=== PATIENT | male | born 1985 | race Caucasian/White ===

== ENCOUNTER 2020-12-02 13:51 | Inpatient (IN) | payer MEDICARE, MEDICAID ==
[2020-12-02 14:20] LABS: #Basophils 0.1 10x3/uL (0.0-0.2); #Eosinphils 0.1 10x3/uL (0.0-0.5); #Monocytes 1.4 10x3/uL (0.0-1.1); #Neutrophils 16.5 10x3/uL (1.5-8.4); %Basophils 0.7 % (0.0-2.0); %Eosinophils 0.4 % (0.0-6.0); %Lymphocytes 11.9 % (18.0-47.0); %Monocytes 6.8 % (0.0-10.0); %Neutrophils 78.9 % (40.0-75.0); Mean Corpuscular HGB CONC 34.3 g/dL (32.0-36.0); Mean Corpuscular Hemoglobin 30.4 pg (27.0-33.0); Mean Corpuscular Volume 88.8 fl (81.2-95.1); Mean Platelet Volume 11.3 fl (7.4-10.4); Platelet Count 325 10x3/uL (150-450); RBC Distribution Width 17.3 % (11.5-14.5); Red Blood Cell (RBC) Count 4.27 10x6/uL (4.32-5.72)
[2020-12-02 14:38] LABS: ALT (SGPT) 43 U/L (8-55); AST (SGOT) 26 U/L (5-34); Alkaline Phosphatase 163 U/L (40-110); Anion Gap 25 mmol/L (10-20); BUN (Urea Nitrogen) 44 mg/dL (8.9-20.6); Bilirubin, Total 0.9 mg/dL (0.2-1.2); Calc. Creatinine Clearance 0 mL/min (70-130); Calcium 10.6 mg/dL (7.8-10.44); Carbon Dioxide 23 mmol/L (22-29); Chloride 90 mmol/L (98-107); Globulin 3.2 g/dL (2.4-3.5); Glucose 151 mg/dL (70-105); Protein, Total 8.2 g/dL (6.0-8.3); Sodium 135 mmol/L (136-145)
[2020-12-02] MEDS ORDERED: Enoxaparin Sodium 60 MG/0.6 ML SYRINGE ONE (14:57)
[2020-12-02] MEDS ORDERED: Aspirin Chewable 81 MG TAB ONE (14:57)
[2020-12-02 15:08] LABS: CKMB 7.2 ng/mL (0-6.6)
[2020-12-02] MEDS ORDERED: Cefepime 2 GM VIAL ONE (15:20)
[2020-12-02 15:23] LABS: SARS-CoV-2 NAA Rapid Test Not Detected (NotDetected)
[2020-12-02] MEDS ORDERED: Acetaminophen 325 MG TAB PO PRN (16:13)
[2020-12-02] MEDS ORDERED: Guaifenesin DM 100-10/5 ML UDCUP PO PRN (16:13)
[2020-12-02] MEDS ORDERED: Senokot S 8.6-50 MG TAB PO PRN (16:13)
[2020-12-02] MEDS ORDERED: Heparin 25,000 units/D5W 500 ML IVPB SCH (16:30)
[2020-12-02] MEDS ORDERED: Heparin 10,000 UNITS/ 10 ML VIAL SLOW IVP SCH (16:30)
[2020-12-02 16:34] LABS: BF Color Colorless; BF RBC Count - Manual 0 /cu.mm; BF WBC/Nonhematics Ct.-Manual 0 /cu.mm; Body Fluid Source Peritoneal Fluid; Clarity Clear (Clear); Tube # 1
[2020-12-02 17:11] LABS: Troponin I 0.278 ng/mL (< 0.028)
[2020-12-02 17:15] LABS: Platelet Count 256 10x3/uL (150-450)
[2020-12-02 17:17] LABS: Lactic Acid 1.3 mmol/L (0.5-2.2)
[2020-12-02 17:20] LABS: Hemoglobin 9.6 g/dL (13.5-17.5)
[2020-12-02 19:47] LABS: #Basophils 0.1 10x3/uL (0.0-0.2); #Eosinphils 0.1 10x3/uL (0.0-0.5); #Monocytes 1.6 10x3/uL (0.0-1.1); #Neutrophils 11.8 10x3/uL (1.5-8.4); %Basophils 0.8 % (0.0-2.0); %Eosinophils 0.7 % (0.0-6.0); %Lymphocytes 14.5 % (18.0-47.0); %Monocytes 9.6 % (0.0-10.0); %Neutrophils 72.5 % (40.0-75.0); Hemoglobin 10.4 g/dL (13.5-17.5); Mean Corpuscular HGB CONC 33.5 g/dL (32.0-36.0); Mean Corpuscular Hemoglobin 30.4 pg (27.0-33.0); Mean Corpuscular Volume 90.6 fl (81.2-95.1); Mean Platelet Volume 11.2 fl (7.4-10.4); Platelet Count 224 10x3/uL (150-450); RBC Distribution Width 17.8 % (11.5-14.5); Red Blood Cell (RBC) Count 3.42 10x6/uL (4.32-5.72); White Blood Cell (WBC) Count 16.2 10x3/uL (3.5-10.5)
[2020-12-02 20:09] LABS: Troponin I 0.313 ng/mL (< 0.028)
[2020-12-02] MEDS ORDERED: Sodium Chloride 0.9% 1,000 ML IV SCH ×2 (20:30→23:00)
[2020-12-02] MEDS ORDERED: Potassium Chloride 20 MEQ TAB PO SCH (21:15)
[2020-12-02] MEDS: Atorvastatin Calcium 40 MG TAB PO SCH (22:21)
[2020-12-02] MEDS: Sevelamer Carbonate 800 MG TAB PO SCH (22:22)
[2020-12-02] MEDS: Metoprolol Tartrate 25 MG TAB PO SCH (22:25)
[2020-12-03 06:26] LABS: #Basophils 0.1 10x3/uL (0.0-0.2); #Eosinphils 0.3 10x3/uL (0.0-0.5); #Monocytes 1.7 10x3/uL (0.0-1.1); #Neutrophils 11.4 10x3/uL (1.5-8.4); %Basophils 0.8 % (0.0-2.0); %Eosinophils 1.8 % (0.0-6.0); %Lymphocytes 14.4 % (18.0-47.0); %Monocytes 10.6 % (0.0-10.0); %Neutrophils 70.4 % (40.0-75.0); Hemoglobin 8.8 g/dL (13.5-17.5); Mean Corpuscular HGB CONC 33.3 g/dL (32.0-36.0); Mean Corpuscular Hemoglobin 30.2 pg (27.0-33.0); Mean Corpuscular Volume 90.7 fl (81.2-95.1); Platelet Count 249 10x3/uL (150-450); RBC Distribution Width 17.2 % (11.5-14.5); Red Blood Cell (RBC) Count 2.91 10x6/uL (4.32-5.72); White Blood Cell (WBC) Count 16.2 10x3/uL (3.5-10.5)
[2020-12-03 06:30] LABS: Anion Gap 19 mmol/L (10-20); Cardiac Risk 5.5 (Less than 4.5); Globulin 2.6 g/dL (2.4-3.5); LDL Cholesterol, Calculated 62 mg/dL
[2020-12-03 06:47] LABS: ALT (SGPT) 30 U/L (8-55); AST (SGOT) 21 U/L (5-34); Albumin 3.5 g/dL (3.5-5.0); Alkaline Phosphatase 113 U/L (40-110); BUN (Urea Nitrogen) 48 mg/dL (8.9-20.6); Bilirubin, Total 0.5 mg/dL (0.2-1.2); Calc. Creatinine Clearance 8 mL/min (70-130); Calcium 9.2 mg/dL (7.8-10.44); Carbon Dioxide 23 mmol/L (22-29); Chloride 98 mmol/L (98-107); Cholesterol 138 mg/dl (< 200 Desired); Glucose 106 mg/dL (70-105); HDL Cholesterol 25 mg/dL (>60 Neg Risk); Potassium 3.4 mmol/L (3.5-5.1); Protein, Total 6.1 g/dL (6.0-8.3); Sodium 137 mmol/L (136-145); Triglycerides 257 mg/dL (Less than 150)
[2020-12-03] MEDS: Nicotine 14 MG PATCH TD SCH ×2 (06:56→21:05)
[2020-12-03] MEDS ORDERED: Potassium Chloride 20 MEQ TAB PO SCH (08:00)
[2020-12-03 08:46] LABS: Anion Gap 19 mmol/L (10-20); BUN (Urea Nitrogen) 47 mg/dL (8.9-20.6); Calc. Creatinine Clearance 8 mL/min (70-130); Carbon Dioxide 20 mmol/L (22-29); Chloride 99 mmol/L (98-107); Glucose 94 mg/dL (70-105); Potassium 3.4 mmol/L (3.5-5.1); Sodium 135 mmol/L (136-145)
[2020-12-03] MEDS ORDERED: Nitroglycerin 50 MG/250 ML BOT 250 ML ONE (08:49)
[2020-12-03] MEDS ORDERED: Heparin 10,000 UNITS/ 10 ML VIAL ONE (08:49)
[2020-12-03] MEDS ORDERED: Adenosine 6 MG/2 ML VIAL ONE (08:49)
[2020-12-03] MEDS ORDERED: Lidocaine 1% (PF) 30 ML VIAL ONE (08:49)
[2020-12-03 08:50] LABS: Troponin I 0.264 ng/mL (< 0.028)
[2020-12-03] MEDS ORDERED: Bivalirudin 250 MG VIAL ONE (08:50)
[2020-12-03] MEDS ORDERED: Verapamil 5 MG/2 ML VIAL ONE (08:51)
[2020-12-03] MEDS ORDERED: Midazolam HCl 2 mg/2 ml Vial ONE (08:51)
[2020-12-03] MEDS ORDERED: Fentanyl 100 MCG/2 ML VIAL ONE (08:57)
[2020-12-03] MEDS ORDERED: Vancomycin HCl 1 GM in Sodium Chloride 0.9% 250 ML 250 ML IVPB SCH ×2 (09:00→13:00)
[2020-12-03] MEDS ORDERED: Communication Order-Pharmacy FS SCH (09:00)
[2020-12-03] MEDS: Folic Acid/Vit B Comp W-C PO SCH (09:04)
[2020-12-03] MEDS: Ferrous Sulfate 325 MG TAB PO SCH (09:04)
[2020-12-03] MEDS: Metoprolol Tartrate 25 MG TAB PO SCH ×2 (09:04→20:25)
[2020-12-03] MEDS: Sevelamer Carbonate 800 MG TAB PO SCH ×3 (09:05→20:25)
[2020-12-03] MEDS: Aspirin Chewable 81 MG TAB PO SCH (09:05)
[2020-12-03 09:41] LABS: PTT 27.1 sec (22.0-33.0); Prothrombin Time 11.1 sec (9.5-12.1)
[2020-12-03 11:20] LABS: Hemoglobin A1c 5.5 % (4.0-6.0)
[2020-12-03] MEDS ORDERED: Vancomycin HCl 500 MG in Sodium Chloride 0.9% 100 ML IVPB SCH ×2 (11:45)
[2020-12-03] MEDS ORDERED: Vancomycin 1 GM in Premix Bag 1 BAG IVPB SCH (11:45)
[2020-12-03] MEDS ORDERED: HOLD VANCOMYCIN FOR LEVEL >20 FS SCH (11:45)
[2020-12-03] MEDS ORDERED: Vancomycin HCl 750 MG in Sodium Chloride 0.9% 250 ML 250 ML IVPB SCH (11:45)
[2020-12-03] MEDS ORDERED: Vancomycin HCl 1.25 GM in Sodium Chloride 0.9% 250 ML 250 ML IVPB SCH (11:45)
[2020-12-03] MEDS ORDERED: Nitroglycerin 0.4 MG TAB (25 Tab Bottle) SL PRN (11:54)
[2020-12-03] MEDS ORDERED: Sodium Chloride 0.9% 200 ML IV PRN (11:54)
[2020-12-03] MEDS ORDERED: Acetaminophen/Codeine 30-300mg Tablet PO PRN ×2 (11:54)
[2020-12-03] MEDS ORDERED: EPOETIN ALFA-EPBX (ESRD) 10,000 UNIT/ML VIAL SC SCH (12:00)
[2020-12-03] MEDS ORDERED: Cefepime 2 GM in Sodium Chloride 0.9% 100 ML IVPB SCH (15:30)
[2020-12-03] MEDS: Atorvastatin Calcium 40 MG TAB PO SCH (20:25)
[2020-12-04] MEDS: Ondansetron PF 4 MG/2 ML Vial IVP PRN (03:25)
[2020-12-04 05:45] LABS: #Basophils 0.1 10x3/uL (0.0-0.2); #Eosinphils 0.5 10x3/uL (0.0-0.5); #Monocytes 1.6 10x3/uL (0.0-1.1); #Neutrophils 9.8 10x3/uL (1.5-8.4); %Basophils 0.8 % (0.0-2.0); %Eosinophils 3.3 % (0.0-6.0); %Lymphocytes 11.9 % (18.0-47.0); %Monocytes 10.8 % (0.0-10.0); %Neutrophils 68.6 % (40.0-75.0); Hemoglobin 8.1 g/dL (13.5-17.5); Mean Corpuscular HGB CONC 33.8 g/dL (32.0-36.0); Mean Corpuscular Hemoglobin 30.2 pg (27.0-33.0); Mean Corpuscular Volume 89.6 fl (81.2-95.1); Platelet Count 240 10x3/uL (150-450); RBC Distribution Width 17.3 % (11.5-14.5); Red Blood Cell (RBC) Count 2.68 10x6/uL (4.32-5.72); White Blood Cell (WBC) Count 14.3 10x3/uL (3.5-10.5)
[2020-12-04 06:04] LABS: ALT (SGPT) 28 U/L (8-55); AST (SGOT) 19 U/L (5-34); Albumin 3.2 g/dL (3.5-5.0); Alkaline Phosphatase 99 U/L (40-110); Anion Gap 16 mmol/L (10-20); BUN (Urea Nitrogen) 49 mg/dL (8.9-20.6); Bilirubin, Total 0.4 mg/dL (0.2-1.2); Calc. Creatinine Clearance 8 mL/min (70-130); Calcium 8.6 mg/dL (7.8-10.44); Carbon Dioxide 23 mmol/L (22-29); Chloride 97 mmol/L (98-107); Globulin 2.2 g/dL (2.4-3.5); Glucose 101 mg/dL (70-105); Magnesium 1.8 mg/dL (1.6-2.6); Potassium 3.1 mmol/L (3.5-5.1); Protein, Total 5.4 g/dL (6.0-8.3); Sodium 133 mmol/L (136-145)
[2020-12-04] MEDS: Metoprolol Tartrate 25 MG TAB PO SCH (07:51)
[2020-12-04] MEDS: Aspirin Chewable 81 MG TAB PO SCH (07:52)
[2020-12-04] MEDS: Folic Acid/Vit B Comp W-C PO SCH (07:52)
[2020-12-04] MEDS: Sevelamer Carbonate 800 MG TAB PO SCH ×3 (07:52→20:20)
[2020-12-04] MEDS: Clopidogrel Bisulfate 75 MG TAB PO SCH (07:52)
[2020-12-04] MEDS: Ferrous Sulfate 325 MG TAB PO SCH (07:52)
[2020-12-04] MEDS ORDERED: Potassium Chloride 20 MEQ TAB PO SCH (09:15)
[2020-12-04] MEDS ORDERED: Cefepime 2 GM in Sodium Chloride 0.9% 100 ML IVPB SCH (15:30)
[2020-12-04 16:59] LABS: Hemoglobin 8.6 g/dL (13.5-17.5); Platelet Count 245 10x3/uL (150-450)
[2020-12-04] MEDS: Nicotine 14 MG PATCH TD SCH (20:19)
[2020-12-04] MEDS: Atorvastatin Calcium 40 MG TAB PO SCH (20:20)
[2020-12-05] MEDS: Ondansetron PF 4 MG/2 ML Vial IVP PRN (02:43)
[2020-12-05 05:05] VITALS: BP 123/76; TEMP 98
[2020-12-05 05:14] LABS: Hemoglobin 8.6 g/dL (13.5-17.5); Mean Corpuscular HGB CONC 33.7 g/dL (32.0-36.0); Mean Corpuscular Hemoglobin 30.3 pg (27.0-33.0); Mean Corpuscular Volume 89.8 fl (81.2-95.1); Mean Platelet Volume 11.8 fl (7.4-10.4); Platelet Count 247 10x3/uL (150-450); RBC Distribution Width 17.4 % (11.5-14.5); Red Blood Cell (RBC) Count 2.84 10x6/uL (4.32-5.72); White Blood Cell (WBC) Count 14.9 10x3/uL (3.5-10.5)
[2020-12-05 05:37] LABS: Anion Gap 17 mmol/L (10-20); BUN (Urea Nitrogen) 50 mg/dL (8.9-20.6); Calc. Creatinine Clearance 8 mL/min (70-130); Calcium 8.9 mg/dL (7.8-10.44); Carbon Dioxide 24 mmol/L (22-29); Chloride 97 mmol/L (98-107); Glucose 85 mg/dL (70-105); Potassium 3.3 mmol/L (3.5-5.1); Sodium 135 mmol/L (136-145)
[2020-12-05 06:02] VITALS: BMI 26.4
[2020-12-05 07:10] LABS: MDiff Complete? YES
[2020-12-05 07:12] LABS: Eosinophils 6 % (0-10); Lymphocytes 11 % (21-51); Monocytes 10 % (0-10); Neutrophil 73 % (42-75)
[2020-12-05 07:13] LABS: Platelet Morphology Comment Appears Adequate
[2020-12-05] MEDS: Ferrous Sulfate 325 MG TAB PO SCH (08:57)
[2020-12-05] MEDS: Aspirin Chewable 81 MG TAB PO SCH (08:57)
[2020-12-05] MEDS: Sevelamer Carbonate 800 MG TAB PO SCH (08:57)
[2020-12-05] MEDS: Clopidogrel Bisulfate 75 MG TAB PO SCH (08:57)
[2020-12-05] MEDS ORDERED: Potassium Chloride 20 MEQ TAB PO SCH (09:00)
[2020-12-05 09:32] LABS: Vancomycin, Random 15.2 ug/mL (See Comment)
[2020-12-05] MEDS ORDERED: Vancomycin HCl 500 MG in Sodium Chloride 0.9% 100 ML IVPB SCH ×2 (12:00→13:00)
== END 2020-12-05 13:26 | disposition home or self-care (01) | DRG 280 ==
LOC: CSHERS 13:51 → CSHTELE 20:02
PROVIDERS: ADMIT Internal Medicine; ATTEND Family Medicine
PROC: 3E1M39Z Irrigation of Peritoneal Cavity using Dialysate, Percutaneous Approach (ICD-10-PCS; principal; 2020-12-03)
PROC: 4A023N7 Measurement of Cardiac Sampling and Pressure, Left Heart, Percutaneous Approach (ICD-10-PCS; 2020-12-03)
PROC: B2111ZZ Fluoroscopy of Multiple Coronary Arteries using Low Osmolar Contrast (ICD-10-PCS; 2020-12-03)
PROC: B2161ZZ Fluoroscopy of Right and Left Heart using Low Osmolar Contrast (ICD-10-PCS; 2020-12-03)
DX: I21.4 Non-ST elevation (NSTEMI) myocardial infarction (principal); N18.6 End stage renal disease; I12.0 Hypertensive chronic kidney disease with stage 5 chronic kidney disease or end stage renal disease; E87.2 Acidosis; E87.1 Hypo-osmolality and hyponatremia; R65.10 Systemic inflammatory response syndrome (SIRS) of non-infectious origin without acute organ dysfunction; Z20.822 Contact with and (suspected) exposure to COVID-19; E78.5 Hyperlipidemia, unspecified; E87.6 Hypokalemia; R77.8 Other specified abnormalities of plasma proteins; F17.210 Nicotine dependence, cigarettes, uncomplicated; I95.9 Hypotension, unspecified; D63.1 Anemia in chronic kidney disease; Z91.018 Allergy to other foods; Z71.6 Tobacco abuse counseling; Z91.14 Patient's other noncompliance with medication regimen; Z79.899 Other long term (current) drug therapy; Z99.2 Dependence on renal dialysis; I25.110 Atherosclerotic heart disease of native coronary artery with unstable angina pectoris; R00.0 Tachycardia, unspecified
CPT/HCPCS: 0240U; 36415; 71045; 80048; 80053; 80061; 80202; 82553; 83036; 83605; 83735; 84145; 84484; 85014; 85018; 85025; 85049; 85379; 85610; 85730; 86140; 87040; 87070; 89051; 90945; 93005; 93010; 93306; 93458; 96365; 96366; 96367; 96372; 99152; G0257; J0153; J0583; J0692; J1644; J1650; J1956; J2001; J2250; J2405; J3010; J3370; J3490; Q5105

== ENCOUNTER 2021-01-20 11:26 | Inpatient (IN) | payer MEDICARE, MEDICAID ==
[2021-01-20] MEDS ORDERED: Cefepime 2 GM VIAL ONE (12:19)
[2021-01-20 12:44] LABS: #Basophils 0.1 10x3/uL (0.0-0.2); #Eosinphils 0.2 10x3/uL (0.0-0.5); #Neutrophils 16.1 10x3/uL (1.5-8.4); %Basophils 0.5 % (0.0-2.0); %Eosinophils 0.8 % (0.0-6.0); %Lymphocytes 9.2 % (18.0-47.0); %Monocytes 4.9 % (0.0-10.0); %Neutrophils 81.8 % (40.0-75.0); Hemoglobin 12.8 g/dL (13.5-17.5); Mean Corpuscular HGB CONC 33.9 g/dL (32.0-36.0); Mean Corpuscular Hemoglobin 31.5 pg (27.0-33.0); Mean Corpuscular Volume 93.1 fl (81.2-95.1); Mean Platelet Volume 11.4 fl (7.4-10.4); Platelet Count 403 10x3/uL (150-450); RBC Distribution Width 17.9 % (11.5-14.5); Red Blood Cell (RBC) Count 4.06 10x6/uL (4.32-5.72); White Blood Cell (WBC) Count 19.7 10x3/uL (3.5-10.5)
[2021-01-20 13:05] LABS: ALT (SGPT) 148 U/L (8-55); AST (SGOT) 46 U/L (5-34); Albumin 4.2 g/dL (3.5-5.0); Alkaline Phosphatase 203 U/L (40-110); Anion Gap 23 mmol/L (10-20); BUN (Urea Nitrogen) 31 mg/dL (8.9-20.6); Bilirubin, Total 0.6 mg/dL (0.2-1.2); Calc. Creatinine Clearance 0 mL/min (70-130); Calcium 10.5 mg/dL (7.8-10.44); Carbon Dioxide 23 mmol/L (22-29); Chloride 83 mmol/L (98-107); Globulin 4.6 g/dL (2.4-3.5); Glucose 137 mg/dL (70-105); Potassium 3.3 mmol/L (3.5-5.1); Protein, Total 8.8 g/dL (6.0-8.3); Sodium 126 mmol/L (136-145)
[2021-01-20 13:48] LABS: Actual Bicarbonate (HCO3a) 23.6 mEq/L (22-28); CO2 Tension 34.6 mmHg (35.0-45.0); Calcium, Ionized (arterial) 1.06 mmol/L (1.12-1.30); Carboxyhemoglobin (COHb) 0.6 gm% (0.0-3.0); Hemoglobin (Hb) 10.8 g/dL (14.0-18.0); Notified Whom: ED physician; O2 Tension (PaO2), arterial 93.4 mmHg (80.0-100.0); Potassium - ABG Lab 3.4 mmol/L (3.70-5.30); Puncture Site LBA; pH, Arterial 7.45 (7.35-7.45)
[2021-01-20] MEDS ORDERED: Bisacodyl 5 MG TAB PO PRN (15:10)
[2021-01-20] MEDS ORDERED: Ondansetron PF 4 MG/2 ML Vial IVP PRN (15:10)
[2021-01-20] MEDS ORDERED: Vancomycin HCl 0.5 GM in Sodium Chloride 0.9% 250 ML 250 ML IVPB SCH (15:15)
[2021-01-20 15:28] LABS: Lactic Acid 1.9 mmol/L (0.5-2.2)
[2021-01-20] MEDS ORDERED: Vancomycin HCl 250 MG in Sodium Chloride 0.9% 100 ML IVPB SCH (17:00)
[2021-01-20] MEDS ORDERED: Vancomycin 1 GM in Premix Bag 1 BAG IVPB SCH (17:00)
[2021-01-20] MEDS ORDERED: Vancomycin HCl 500 MG in Sodium Chloride 0.9% 100 ML IVPB SCH (17:00)
[2021-01-20] MEDS ORDERED: Vancomycin HCl 750 MG in Sodium Chloride 0.9% 250 ML 250 ML IVPB SCH (17:00)
[2021-01-20] MEDS ORDERED: HOLD VANCOMYCIN FOR LEVEL >20 FS SCH (17:00)
[2021-01-20] MEDS ORDERED: Ondansetron PF 4 MG/2 ML Vial ONE (17:40)
[2021-01-20] MEDS ORDERED: HYDROcodone/Acetaminophen 5/325 mg Tablet ONE (18:10)
[2021-01-21 05:23] LABS: #Basophils 0.1 10x3/uL (0.0-0.2); #Eosinphils 0.3 10x3/uL (0.0-0.5); #Neutrophils 11.4 10x3/uL (1.5-8.4); %Basophils 0.4 % (0.0-2.0); %Eosinophils 1.9 % (0.0-6.0); %Monocytes 6.8 % (0.0-10.0); Hemoglobin 10.1 g/dL (13.5-17.5); Mean Corpuscular Hemoglobin 31.2 pg (27.0-33.0); Mean Corpuscular Volume 94.4 fl (81.2-95.1); Mean Platelet Volume 11.7 fl (7.4-10.4); Platelet Count 347 10x3/uL (150-450); RBC Distribution Width 17.6 % (11.5-14.5); Red Blood Cell (RBC) Count 3.24 10x6/uL (4.32-5.72); White Blood Cell (WBC) Count 14.9 10x3/uL (3.5-10.5)
[2021-01-21 05:26] LABS: Anion Gap 18 mmol/L (10-20)
[2021-01-21 05:33] LABS: BUN (Urea Nitrogen) 30 mg/dL (8.9-20.6); Calc. Creatinine Clearance 13 mL/min (70-130); Calcium 8.6 mg/dL (7.8-10.44); Carbon Dioxide 25 mmol/L (22-29); Chloride 87 mmol/L (98-107); Glucose 99 mg/dL (70-105); Sodium 127 mmol/L (136-145)
[2021-01-21] MEDS ORDERED: Potassium Chloride 20 MEQ TAB PO SCH (08:00)
[2021-01-21] MEDS: Aspirin Chewable 81 MG TAB PO SCH (08:39)
[2021-01-21] MEDS: Clopidogrel Bisulfate 75 MG TAB PO SCH (08:39)
[2021-01-21 08:58] LABS: Band 1 % (5-11); Hemoglobin 9.9 g/dL (13.5-17.5); Lymphocytes 10 % (21-51); MDiff Complete? YES; Mean Corpuscular HGB CONC 33.6 g/dL (32.0-36.0); Mean Corpuscular Volume 92.5 fl (81.2-95.1); Mean Platelet Volume 11.6 fl (7.4-10.4); Monocytes 8 % (0-10); Neutrophil 81 % (42-75); Platelet Count 345 10x3/uL (150-450); Platelet Morphology Comment Appears Adequate; RBC Distribution Width 17.2 % (11.5-14.5); RBC Morphology Normal; Red Blood Cell (RBC) Count 3.19 10x6/uL (4.32-5.72); White Blood Cell (WBC) Count 12.8 10x3/uL (3.5-10.5)
[2021-01-21] MEDS ORDERED: Enoxaparin Sodium 30 MG/0.3 ML SYRINGE SC SCH (09:00)
[2021-01-21] MEDS: HYDROcodone/Acetaminophen 5/325 mg Tablet PO PRN ×2 (11:31→16:06)
[2021-01-21 14:52] VITALS: BMI 22.8
[2021-01-21] MEDS: Atorvastatin Calcium 40 MG TAB PO SCH (21:49)
[2021-01-21] MEDS: traZODone HCl 50 MG TAB PO SCH (21:49)
[2021-01-22 07:15] LABS: Anion Gap 17 mmol/L (10-20); BUN (Urea Nitrogen) 33 mg/dL (8.9-20.6); Calc. Creatinine Clearance 13 mL/min (70-130); Carbon Dioxide 26 mmol/L (22-29); Chloride 89 mmol/L (98-107); Sodium 129 mmol/L (136-145)
[2021-01-22 07:16] LABS: Calcium 8.5 mg/dL (7.8-10.44); Glucose 123 mg/dL (70-105); Magnesium 1.6 mg/dL (1.6-2.6)
[2021-01-22 07:18] LABS: Potassium 2.8 mmol/L (3.5-5.1)
[2021-01-22] MEDS: Aspirin Chewable 81 MG TAB PO SCH (08:18)
[2021-01-22] MEDS: Cefepime 2 GM in Sodium Chloride 0.9% 100 ML IVPB SCH (08:19)
[2021-01-22] MEDS: Clopidogrel Bisulfate 75 MG TAB PO SCH (08:19)
[2021-01-22] MEDS: HYDROcodone/Acetaminophen 5/325 mg Tablet PO PRN ×3 (08:19→21:30)
[2021-01-22 09:07] LABS: Vancomycin, Random 33.3 ug/mL (See Comment)
[2021-01-22] MEDS: Potassium Chloride 20 MEQ TAB PO SCH ×4 (10:47→17:09)
[2021-01-22] MEDS: traZODone HCl 50 MG TAB PO SCH (20:33)
[2021-01-22] MEDS: Atorvastatin Calcium 40 MG TAB PO SCH (20:33)
[2021-01-23 05:32] LABS: Anion Gap 15 mmol/L (10-20); BUN (Urea Nitrogen) 34 mg/dL (8.9-20.6); Calc. Creatinine Clearance 12 mL/min (70-130); Calcium 8.5 mg/dL (7.8-10.44); Carbon Dioxide 23 mmol/L (22-29); Chloride 94 mmol/L (98-107); Glucose 125 mg/dL (70-105); Potassium 3.3 mmol/L (3.5-5.1); Sodium 129 mmol/L (136-145)
[2021-01-23 05:46] LABS: Hemoglobin 8.8 g/dL (13.5-17.5); Mean Corpuscular HGB CONC 33.6 g/dL (32.0-36.0); Mean Corpuscular Hemoglobin 31.5 pg (27.0-33.0); Mean Corpuscular Volume 93.9 fl (81.2-95.1); Mean Platelet Volume 11.2 fl (7.4-10.4); Platelet Count 354 10x3/uL (150-450); RBC Distribution Width 17.2 % (11.5-14.5); Red Blood Cell (RBC) Count 2.79 10x6/uL (4.32-5.72); White Blood Cell (WBC) Count 10.3 10x3/uL (3.5-10.5)
[2021-01-23 07:06] LABS: Band 2 % (5-11); Eosinophils 2 % (0-10); Lymphocytes 12 % (21-51); Monocytes 5 % (0-10); Reactive Lymphocytes 8 % (0-10)
[2021-01-23 07:07] LABS: Metamyelocyte 1 % (0-0); Myelocyte 3 % (0-0); Neutrophil 66 % (42-75)
[2021-01-23 07:09] LABS: Anisocytosis MODERATE=16-30 cells (100X) (0-5/hpf); Macrocytosis SLIGHT = 6-15 cells (100X) (0-5/hpf); Microcytosis SLIGHT = 6-15 cells (100X) (0-5/hpf); Ovalocytes SLIGHT = 2-5 cells (100X) (0-1/hpf)
[2021-01-23 07:10] LABS: Large Platelets SLIGHT; Manual Diff?? YES; Platelet Morphology Comment Appears Adequate
[2021-01-23 07:11] LABS: MDiff Complete? YES
[2021-01-23] MEDS: Aspirin Chewable 81 MG TAB PO SCH (08:30)
[2021-01-23] MEDS: Clopidogrel Bisulfate 75 MG TAB PO SCH (08:30)
[2021-01-23 09:33] LABS: Vancomycin, Random 27.7 ug/mL (See Comment)
[2021-01-23] MEDS: HYDROcodone/Acetaminophen 5/325 mg Tablet PO PRN (20:23)
[2021-01-23] MEDS: traZODone HCl 50 MG TAB PO SCH (20:24)
[2021-01-23] MEDS: Atorvastatin Calcium 40 MG TAB PO SCH (20:24)
[2021-01-24 05:40] LABS: Anion Gap 15 mmol/L (10-20); BUN (Urea Nitrogen) 36 mg/dL (8.9-20.6); Calc. Creatinine Clearance 12 mL/min (70-130); Calcium 8.9 mg/dL (7.8-10.44); Carbon Dioxide 24 mmol/L (22-29); Chloride 95 mmol/L (98-107); Glucose 105 mg/dL (70-105); Potassium 3.3 mmol/L (3.5-5.1); Sodium 131 mmol/L (136-145)
[2021-01-24 05:41] LABS: Hemoglobin 8.9 g/dL (13.5-17.5); Mean Corpuscular HGB CONC 33.8 g/dL (32.0-36.0); Mean Corpuscular Volume 94.6 fl (81.2-95.1); Mean Platelet Volume 10.9 fl (7.4-10.4); Platelet Count 378 10x3/uL (150-450); RBC Distribution Width 17.4 % (11.5-14.5); Red Blood Cell (RBC) Count 2.78 10x6/uL (4.32-5.72); White Blood Cell (WBC) Count 12.1 10x3/uL (3.5-10.5)
[2021-01-24 06:38] LABS: Eosinophils 1 % (0-10); Lymphocytes 6 % (21-51); Metamyelocyte 2 % (0-0); Monocytes 5 % (0-10); Myelocyte 4 % (0-0); Neutrophil 63 % (42-75); Nucleated RBC 1 % (0); Reactive Lymphocytes 12 % (0-10)
[2021-01-24 06:40] LABS: Anisocytosis SLIGHT = 6-15 cells (100X) (0-5/hpf); Band 6 % (5-11); Microcytosis SLIGHT = 6-15 cells (100X) (0-5/hpf); Ovalocytes SLIGHT = 2-5 cells (100X) (0-1/hpf)
[2021-01-24 06:41] LABS: Basophilic Stippling SLIGHT = 1-2 cells (100X) (None Seen); Platelet Morphology Comment Appears Adequate
[2021-01-24 06:43] LABS: MDiff Complete? YES; Manual Diff?? YES
[2021-01-24] MEDS: Cefepime 2 GM in Sodium Chloride 0.9% 100 ML IVPB SCH (08:37)
[2021-01-24] MEDS: Aspirin Chewable 81 MG TAB PO SCH (08:37)
[2021-01-24] MEDS: Clopidogrel Bisulfate 75 MG TAB PO SCH (08:37)
[2021-01-24 11:21] LABS: BF Color Colorless; Body Fluid Source Ascites Body Fluid; Clarity Clear (Clear); Tube # EDTA
[2021-01-24 11:28] LABS: BF RBC Count - Manual 2 /cu.mm; BF WBC/Nonhematics Ct.-Manual 16 /cu.mm
[2021-01-24 12:03] LABS: BF Segmented Neutrophils 77 %; Cell Count Non Hematic 2 %; Eosinophils 5 %; Lymphocytes 16 %
[2021-01-24 12:42] VITALS: BP 110/68; TEMP 98.3
[2021-01-24] MEDS ORDERED: EPOETIN ALFA-EPBX (ESRD) 10,000 UNIT/ML VIAL SC SCH (14:00)
[2021-01-24] MEDS ORDERED: Sevelamer Carbonate 800 MG TAB PO SCH (17:00)
== END 2021-01-24 15:55 | disposition home or self-care (01) | DRG 871 ==
LOC: CSHERS 11:26 → CSHTELE 14:47 → UNDOADMOB 21:15 → INTOOBSV 21:16 → OBSVTOIN 21:16
PROVIDERS: ADMIT Internal Medicine; ATTEND Family Medicine
PROC: 3E1M39Z Irrigation of Peritoneal Cavity using Dialysate, Percutaneous Approach (ICD-10-PCS; principal; 2021-01-20)
DX: A41.9 Sepsis, unspecified organism (principal); N18.6 End stage renal disease; K65.2 Spontaneous bacterial peritonitis; E87.2 Acidosis; I12.0 Hypertensive chronic kidney disease with stage 5 chronic kidney disease or end stage renal disease; D63.1 Anemia in chronic kidney disease; E87.6 Hypokalemia; F17.210 Nicotine dependence, cigarettes, uncomplicated; R65.20 Severe sepsis without septic shock; Z79.01 Long term (current) use of anticoagulants; Z79.891 Long term (current) use of opiate analgesic; Z99.2 Dependence on renal dialysis; Z79.899 Other long term (current) drug therapy; Z91.018 Allergy to other foods; Z79.82 Long term (current) use of aspirin; Z83.3 Family history of diabetes mellitus; Z80.8 Family history of malignant neoplasm of other organs or systems; B95.7 Other staphylococcus as the cause of diseases classified elsewhere
CPT/HCPCS: 36415; 36600; 71045; 74177; 80048; 80053; 80202; 82553; 82805; 83605; 83735; 84484; 85025; 87040; 87070; 87205; 89051; 90945; 93005; 96365; 96366; 96367; 96375; G0257; J0692; J2405; J3370; J3490; Q5105